=== PATIENT | male | born 1950 ===

== ENCOUNTER 2017-03-11 08:54 | Day surgery (SDC) | payer MEDICARE ==
[2017-03-11] MEDS ORDERED: Lactated Ringer's 500 ML IV ONE (09:02)
[2017-03-11 09:28] VITALS: TEMP 97.8; O2SAT 97
[2017-03-11] MEDS ORDERED: Lidocaine 2% MPF (5 ml) Inj ONE (10:14)
[2017-03-11] MEDS ORDERED: Propofol 10 mg/ml Inj (20 ML) ONE (10:14)
[2017-03-11 10:40] VITALS: RESP 12
[2017-03-11 10:51] VITALS: BP 113/84; PULSE 67
== END 2017-03-11 10:56 | disposition home or self-care (01) ==
LOC: H.ENDO 08:54
PROVIDERS: ATTEND Internal Medicine Gastroenterology
DX: Z12.11 Encounter for screening for malignant neoplasm of colon (principal); K63.5 Polyp of colon; E78.5 Hyperlipidemia, unspecified; E03.9 Hypothyroidism, unspecified; G47.30 Sleep apnea, unspecified
CPT/HCPCS: 45384; 88305; J2704; J7120